=== PATIENT | male | born 1960 | race Caucasian/White ===

== ENCOUNTER 2016-10-23 12:32 | Emergency (ER) | payer MEDICAID ==
--- NOTE | 2016-10-23 13:31 | ED.PDOC ---
History of Present Illness - General Chief Complaint: Back Pain or Injury Stated Complaint: back discomfort Time Seen by Provider: 10/23/16 13:31 Source: patient Exam Limitations: no limitations - History of Present Illness Initial Comments: patient stated that his symptoms started a month ago after closing dumpster he heard a pop on his back then pain on his low back seen er and x ray lumbar area showing old compression fracture on lumbar spine but was told its not from accident.Was prescibed pain meds and muscle relaxer.Denies bowel or bladder dysfunction. Timing/Duration: other - 1 month ago Quality/Severity: moderate, sharpness Back Pain Location: lumbar spine, paraspinous muscles - left side Back Pain Radiation: other - none Method of Injury/Prior Injury: prior injury Improving Factors: nothing Worsening Factors: nothing Associated Symptoms: denies symptoms Allergies/Adverse Reactions: Allergies NO KNOWN ALLERGY Allergy (Verified 05/27/15 16:57) Home Medications: Ambulatory Orders Cyclobenzaprine HCl 10 mg PO BEDTIME PRN 04/02/15 Metoprolol Tartrate 50 mg PO DAILY 04/02/15 Acetamin W/Cod #3 Tab [Tylenol #3 Tab] 1 ea PO Q4-6H PRN #12 tab 05/31/16 Albuterol Sulfate [Proair Hfa] 2 puff INH DAILY 05/31/16 Celecoxib [CeleBREX] 200 mg PO BID 05/31/16 Citalopram Hydrobromide [CeleXA] 20 mg PO DAILY 05/31/16 Metoprolol Tartrate 100 mg PO BEDTIME 05/31/16 Olmesartan Medoxomil [Benicar] 40 mg PO DAILY 05/31/16 amLODIPine BESYLATE [Norvasc] 5 mg PO BEDTIME 05/31/16 Review of Systems - Review of Systems Constitutional: States: no symptoms reported EENTM: States: no symptoms reported Respiratory: States: no symptoms reported Cardiology: States: no symptoms reported Gastrointestinal/Abdominal: States: no symptoms reported Genitourinary: States: no symptoms reported Musculoskeletal: States: back pain - lumbar Skin: States: no symptoms reported Neurological: States: no symptoms reported Endocrine: States: no symptoms reported Hematologic/Lymphatic: States: no symptoms reported Past Medical History (General) - Patient Medical History Hx Stroke: No Hx Congestive Heart Failure: No Hx Hypertension: Yes Hx Diabetes: No Surgical History: cholecystectomy, tonsillectomy - Vaccination History Hx Tetanus, Diphtheria Vaccination: No Hx Influenza Vaccination: No Hx Pneumococcal Vaccination: No - Social History Hx Tobacco Use: No Family Medical History - Family History Mother Family History: No Known Living Status: Cause of : pancreatic CA Hx Cardiac Disease: Yes - Hx DVT's Physical Exam - Physical Exam General Appearance: Alert, No apparent distress Eyes, Ears, Nose, Throat Exam: PERRL/EOMI, normal ENT inspection, TMs normal Neck Exam: non-tender, full range of motion, normal alignment Cardiovascular/Respiratory: regular rate, rhythm, no M/R/G, normal peripheral pulses, no JVD Peripheral Pulses: radial,right: 2+, radial,left: 2+ Gastrointestinal/Abdominal: normal bowel sounds, non tender, soft, no organomegaly Back Exam: normal inspection, no CVA tenderness, no vertebral tenderness, muscle spasm Extremity Exam: no evidence of injury, normal range of motion, non-tender Neurologic: alert, normal mood/affect, oriented x 3 Skin Exam: normal color, warm/dry, cyanosis Departure - Departure Clinical Impression: Muscle spasm of back Low back pain without sciatica Qualifiers: Back pain laterality: left Qualifier Code: (M54.5) Low back pain Time of Disposition: 13:48 Disposition: Discharge to Home or Self Care Condition: Good Departure Forms: ED Discharge - Pt. Copy, Patient Portal Self Enrollment Instructions: DI for Low Back Pain Referrals: Ashwin Desir MD [Primary Care Provider] - 1-2 Weeks Home Medications: Ambulatory Orders Cyclobenzaprine HCl 10 mg PO BEDTIME PRN 04/02/15 Metoprolol Tartrate 50 mg PO DAILY 04/02/15 Acetamin W/Cod #3 Tab [Tylenol #3 Tab] 1 ea PO Q4-6H PRN #12 tab 05/31/16 Albuterol Sulfate [Proair Hfa] 2 puff INH DAILY 05/31/16 Celecoxib [CeleBREX] 200 mg PO BID 05/31/16 Citalopram Hydrobromide [CeleXA] 20 mg PO DAILY 05/31/16 Metoprolol Tartrate 100 mg PO BEDTIME 05/31/16 Olmesartan Medoxomil [Benicar] 40 mg PO DAILY 05/31/16 amLODIPine BESYLATE [Norvasc] 5 mg PO BEDTIME 05/31/16 Additional Instructions: CONTINUE WITH CURRENT MEDICATIONS;FOLLOW UP WITH PRIMARY MD TAVERAS
[2016-10-23] MEDS ORDERED: KETOROLAC TROMETHAMINE INJ 60 MG/2 ML VIAL IM ONE (13:45)
[2016-10-23] MEDS ORDERED: HYDROcodone 10MG/APAP 325MG 1 EA TAB PO ONE (13:46)
[2016-10-23] MEDS ORDERED: ORPHENADRINE CITRATE 30 MG/ML AMP IM ONE (13:46)
[2016-10-23 14:59] VITALS: BP 148/99; TEMP 98; O2SAT 97
== END 2016-10-23 14:15 | disposition home or self-care (01) ==
LOC: ER 12:32
DX: M54.5 Low back pain (principal); M62.830 Muscle spasm of back; I10 Essential (primary) hypertension; Z79.899 Other long term (current) drug therapy
CPT/HCPCS: 73562; J1885; J2360

== ENCOUNTER → 2017-01-28 | Outpatient (CLI) | payer MEDICAID, OTHER | END | disposition home or self-care (01) | LOC: RESP 09:48 | PROVIDERS: ATTEND Nurse Practitioner Family | DX: R00.0 Tachycardia, unspecified (principal); I10 Essential (primary) hypertension; Z13.29 Encounter for screening for other suspected endocrine disorder; Z13.220 Encounter for screening for lipoid disorders ==

== ENCOUNTER → 2017-02-19 | Outpatient (CLI) | payer OTHER ==
--- NOTE | 2017-02-20 08:35 | RAD ---
EXAM DESCRIPTION: Pelvis CLINICAL HISTORY: 56 years Male, PAIN IN RIGHT HIP COMPARISON: None. FINDINGS: The bony pelvis is intact with no abnormality of the bony pelvic ring with a suggestion of borderline or mild osteopenia. No soft tissue masses are noted and no abnormality of the right hip on this AP view of the pelvis is seen. No soft tissue foreign bodies or other changes noted. IMPRESSION: Normal pelvis one view without acute injury or abnormality. Electronically signed by: Ashwin Velazco MD 02/20/2017 8:35 AM CDT
== END | disposition home or self-care (01) ==
LOC: RAD 08:09
PROVIDERS: ATTEND Orthopaedic Surgery
DX: M25.551 Pain in right hip (principal)

== ENCOUNTER → 2017-03-05 | Outpatient (CLI) | payer MEDICAID | LOC: YCFC.O 15:36 | PROVIDERS: ATTEND Nurse Practitioner Family | DX: R19.5 Other fecal abnormalities (principal); I10 Essential (primary) hypertension ==

== ENCOUNTER → 2017-04-23 | Outpatient (CLI) | payer OTHER ==
--- NOTE | 2017-04-24 11:23 | RAD ---
EXAM DESCRIPTION: Chest,2 Views CLINICAL HISTORY: DYSPNEA COMPARISON: CT examination May 2015 of the abdomen and pelvis TECHNIQUE: PA/lateral FINDINGS: Two views of the chest demonstrate clear right lung with an old right posterior lateral lower rib fracture. The left lung demonstrates focal pleural and parenchymal density at the lateral lung base which corresponds to an area of previously noted scarring and thickening evident on prior remote CT. No further workup is required. Lung is otherwise essentially clear with the mid and upper lung field unremarkable. Heart size and vascularity is normal with tortuous aorta and normal mediastinal and hilar contours. IMPRESSION: 1. Pleural and parenchymal scarring and density at the lateral left lung base, unchanged from remote CT of the abdomen that included this region. 2. No acute cardiopulmonary disease. Electronically signed by: Ashwin Velazco MD 04/24/2017 11:22 AM CDT
== END | disposition home or self-care (01) ==
LOC: YCFC.O 14:23
PROVIDERS: ATTEND Nurse Practitioner Family
DX: R06.00 Dyspnea, unspecified (principal); K21.9 Gastro-esophageal reflux disease without esophagitis; R63.5 Abnormal weight gain; R16.0 Hepatomegaly, not elsewhere classified

== ENCOUNTER → 2017-05-04 | Outpatient (CLI) | payer OTHER | LOC: YCFC.O 12:00 | PROVIDERS: ATTEND Anesthesiology Pain Medicine | DX: Z79.891 Long term (current) use of opiate analgesic (principal) ==

== ENCOUNTER → 2017-05-22 | Outpatient (CLI) | payer OTHER ==
--- NOTE | 2017-05-25 08:44 | RAD ---
EXAM DESCRIPTION: Chest,2 Views CLINICAL HISTORY: 56 years, Male, Z01.89,M17.11 shortness breath COMPARISON: April 23 FINDINGS: Adequate inspiration. Some pleural parenchymal density at the left base again noted similar to April study. However slightly more opacity now at the left base. This may be related to technique but cannot exclude a developing superimposed infiltrate. Remaining lungs clear. Cardiac silhouette normal. IMPRESSION: 1. Opacity at the left lung base is probably pleural parenchymal scarring. However this is slightly more prominent than April 23 study. While this may represent technical difference, superimposed pneumonia is not excluded. Recommend follow-up study in about 4-6 weeks to evaluate for stability. Earlier study can be obtained if clinically indicated. 2. Other lung findings stable. Stable heart size. Electronically signed by: Lg Hollingsworth MD 05/25/2017 8:43 AM CDT
== END | disposition home or self-care (01) ==
LOC: YCFC.O 13:24
PROVIDERS: ATTEND Nurse Practitioner Family
DX: Z01.89 Encounter for other specified special examinations (principal); M17.11 Unilateral primary osteoarthritis, right knee

== ENCOUNTER → 2017-05-28 | Outpatient (CLI) | payer OTHER | END | disposition home or self-care (01) | LOC: RESP 12:01 | PROVIDERS: ATTEND Orthopaedic Surgery | DX: Z01.812 Encounter for preprocedural laboratory examination (principal) ==

== ENCOUNTER 2017-06-10 05:53 | Inpatient (IN) | payer OTHER ==
--- NOTE | 2017-06-08 09:04 | HP ---
CHIEF COMPLAINT: Right knee pain. HISTORY OF PRESENT ILLNESS: Mr. Novak is a 56-year-old male with a history of long-term knee pain. He has had injections in the past, anti-inflammatories and activity modification and have failed to give him relief. Because of his ongoing pain and failure of conservative measures, he has requested operative intervention. After discussing the risks, benefits and alternatives to operative intervention, the patient has given informed consent. PAST SURGICAL HISTORY: 1. Tonsillectomy. 2. Cholecystectomy. MEDICATIONS: 1. Citalopram. 2. Losartan. 3. Metoprolol. 4. Cyclobenzaprine. 5. Tramadol. 6. Meloxicam. ALLERGIES: NO KNOWN DRUG ALLERGIES. CODE STATUS: Full code. IMMUNIZATIONS: Up to date. SOCIAL HISTORY: The patient does not drink, smoke or use any illicit drugs. FAMILY HISTORY: None pertinent to today's complaint. REVIEW OF SYSTEMS: Negative except as indicated in the History of Present Illness. PHYSICAL EXAMINATION: VITAL SIGNS: Blood pressure 166/127. Pulse 120. Height 5'9". Weight 191. MENTAL STATUS: The patient is awake, alert, and is able to give a good history and participate in the physical. The patient is oriented to person, place and time. SKIN: Normal tone and turgor. HEENT: Normocephalic, atraumatic. Pupils equal, round and reactive. Mucosal membranes are moist. NECK: Normal range of motion. No thyromegaly, no lymphadenopathy. CHEST: Normal respiratory excursion. CARDIAC: Regular rate and rhythm. No murmurs, rubs or gallops. MUSCULOSKELETAL: Bilateral upper extremities show full active range of motion without pain. There is no deformity or crepitus. Sensation is intact. Strength is 5/5. They are warm and well perfused. The left knee shows no varus /valgus or anterior/posterior laxity. He has full range of motion. The left hip shows full range of motion. Sensation is intact. Strength is 5/5. The right knee is extremely tender diffusely, but most prominently along the medial aspect. Sensation is intact. He has full extension with flexion to about 125 degrees. He is very tender to patellar mobilization. IMAGING: X-rays show severe osteoarthritis. ASSESSMENT: 1. Arthritis. PLAN: The plan at this point is for total knee arthroplasty. We have discussed the risks, benefits, and alternatives to that and the patient has given informed consent. #[id number] [facility]
[~2017-06-10 05:53] MED LIST: LACTATED RINGERS 1,000 ML ONE; SODIUM CHL 0.9% 100ML MINI-BAG 100 ML IVPB ONE; SODIUM CHLORIDE 0.9% 100ML 100 ML IVPB ONE; SODIUM CHLORIDE 0.9% 250ML 250 ML ONE; TRANEXAMIC ACID 1,000 MG/10 ML VIAL ONE; VANCOMYCIN HCL INJ 1,000 MG VIAL IVPB ONE; ceFAZolin SODIUM 1 GM VIAL ONE
[2017-06-10] MEDS ORDERED: MORPHINE SULFATE *EPIDURAL* 0.5 MG/ML VIAL ONE (06:21)
[2017-06-10] MEDS ORDERED: fentaNYL CITRATE INJ 50 MCG/ML AMP ONE (06:24)
[2017-06-10] MEDS ORDERED: ACETAMINOPHEN IV 1000MG 100 ML ONE (06:24)
[2017-06-10] MEDS ORDERED: LACTATED RINGERS 1,000 ML ONE ×2 (06:24→08:56)
[2017-06-10] MEDS ORDERED: ceFAZolin SODIUM 1 GM VIAL ONE (06:25)
[2017-06-10] MEDS ORDERED: LIDOCAINE 1% 50 ML VIAL INJ ONE (06:48)
[2017-06-10] MEDS ORDERED: DEXAMETHASONE INJ 10 MG/ML VIAL ONE (07:00)
[2017-06-10] MEDS ORDERED: PROPOFOL 200 MG/20 ML VIAL IV ONE (07:00)
[2017-06-10] MEDS: VANCOMYCIN HCL INJ 1,000 MG VIAL IVPB ONE ×4 (08:41→09:12)
[2017-06-10] MEDS: ceFAZolin SODIUM 1 GM VIAL ONE ×2 (08:41→09:12)
[2017-06-10] MEDS: BUPIVACAINE 0.5% W/EPI 30 ML VIAL INJ ONE ×2 (08:42→09:38)
[2017-06-10] MEDS ORDERED: BISACODYL SUPPOSITORY 10 MG PR PRN (09:25)
[2017-06-10] MEDS ORDERED: MORPHINE SULFATE INJ 10 MG/ML VIAL IV PRN (09:25)
[2017-06-10] MEDS ORDERED: ACETAMINOPHEN 325 MG TAB PO PRN (09:25)
[2017-06-10] MEDS ORDERED: traMADol HCL 50 MG TAB PO PRN (09:25)
[2017-06-10] MEDS ORDERED: ZOLPIDEM TARTRATE 5 MG TAB PO PRN (09:25)
[2017-06-10] MEDS ORDERED: MAGNESIUM HYDROXIDE 30 ML UD PO PRN (09:25)
[2017-06-10] MEDS ORDERED: TRANEXAMIC ACID INJ 1,000 MG in SODIUM CHLORIDE 0.9% 100ML 100 ML IVPB ONE (09:25)
[2017-06-10] MEDS ORDERED: ALUMINUM & MAGNESIUM HYDROXIDE 30 ML UD PO PRN (09:25)
[2017-06-10] MEDS ORDERED: PROMETHAZINE HCL INJ 12.5 MG in SODIUM CHLORIDE 0.9% 50ML 50 ML IVPB PRN (09:25)
[2017-06-10] MEDS ORDERED: BENZOCAINE-MENTH LOZ (CEPACOL) 1 EA LOZ MT PRN (09:25)
[2017-06-10] MEDS ORDERED: ONDANSETRON INJ 4 MG/2 ML VIAL IV PRN (09:25)
[2017-06-10] MEDS ORDERED: PROMETHAZINE HCL INJ 25 MG in SODIUM CHLORIDE 0.9% 50ML 50 ML IVPB PRN (09:25)
[2017-06-10] MEDS ORDERED: TEMAZEPAM 15 MG CAP PO PRN (09:25)
[2017-06-10] MEDS ORDERED: ACETAMINOPHEN 500 MG TAB PO PRN (09:25)
[2017-06-10] MEDS ORDERED: NALOXONE HCL INJ 0.4 MG/ML VIAL IV PRN (09:25)
[2017-06-10] MEDS ORDERED: SODIUM CHLORIDE 0.9% (FLUSH) 10 ML SYG IV PRN (09:25)
[2017-06-10] MEDS ORDERED: MORPHINE PCA 1 MG/ML 100ML 1 BAG in PREMIX BAG 1 BAG IVPB SCH (09:30)
[2017-06-10] MEDS ORDERED: MORPHINE PCA 1 MG/ML 100 ML BAG IVPB ONE (09:32)
[2017-06-10] MEDS ORDERED: IPRATROPIUM/ALBUTEROL 3 ML VIAL NEB ONE (10:01)
--- NOTE | 2017-06-10 11:20 | OP ---
DATE OF PROCEDURE: 06/10/17 PREOPERATIVE DIAGNOSIS: 1. Osteoarthritis of the knee. POSTOPERATIVE DIAGNOSIS: 1. Osteoarthritis of the knee. PROCEDURE: 1. Total knee arthroplasty. SURGEON: Dc Clancy MD. CONDUCTOR ROAD FREIGHT: Alfred Jaimes CST, SA-C. ANESTHESIA: General. COMPLICATIONS: None. FINDINGS: Severe arthritis of the knee. INDICATION: Mr. Novak has a history of severe pain in the knee which all treatments up to this point have been refractory. Because of the refractory nature of his pain, he has requested operative intervention. After discussing the risks, benefits and alternatives to operative therapy, the patient has given informed consent for total knee arthroplasty. PROCEDURE: The patient was brought to the Operating Room and placed in supine position. General anesthesia was induced and the patient's leg was sterilely prepped and draped. Following prepping and draping, the distal femur was exposed and using an intramedullary guide, the distal femoral cut was made. The appropriate sized cutting block was measured, pinned into place, and the anterior, posterior, and chamfer cuts were made. The ACL was transected and the tibia was subluxed. Both the medial and lateral menisci were removed. An intramedullary guide was used to make the proximal tibial cut. The appropriate sized base plate was placed and a trial polyethylene was placed. The trial femur was placed, the knee was reduced, and the knee was taken through a range of motion. The knee was stable in anterior, posterior, varus and valgus stress. The patella tracked anatomically without evidence of subluxation or dislocation. After trialing, the trial components were removed and the bony surfaces were thoroughly irrigated with saline. Following irrigation, the surfaces were dried and the final components were cemented into place. The excess cement was removed and the remaining cement was allowed to cure. The knee was again taken through a range of motion to confirm stability. The wound was then irrigated with saline and closure was performed using PDS to approximate the arthrotomy followed by closure of the subcutaneous tissues with a combination of running and interrupted Monocryl sutures. Sterile dressing was placed. The patient was awoken from anesthesia and taken to Recovery. POSTOPERATIVE INSTRUCTIONS: The patient will be weight-bearing as tolerated on postoperative day 1. COMPONENTS: [employer] Triathlon knee, size 5 femur, size 5 tibia, 9 mm insert. #[id number] [facility]
[2017-06-10] MEDS: DEX 5% W/NACL 0.45% 1000ML 1,000 ML IVS PRN (12:52)
[2017-06-10] MEDS: IV SET AND CAP CHANGE INJ INJ SCH (13:37)
--- NOTE | 2017-06-10 13:40 | PCM.CORE ---
Physician DVT/VTE - Prophylaxis Currently: Patient already on anticoagulation therapy - Nurse DVT Assessment & Total Each Risk Factor Represents 5 Points: Elective Arthtroplasty Each Risk Factor Represents 1 Point: Age 41-60 DVT Assessment Score: 6 - 5 or more Very High Risk Treatments: Early Ambulation *, Sequential Compression Device Pharmacological: Enoxaparin 30mg SQ BID
--- NOTE | 2017-06-10 14:50 | RAD ---
EXAM DESCRIPTION: Knee,Right 2 or More Views CLINICAL HISTORY: 56 years,Male,TKA COMPARISON: October 23, 2016 FINDINGS: The right knee demonstrates recent total knee arthropathy. With overlying extensive emphysema. No evidence of fractures. IMPRESSION: New right total knee arthroplasty which appears unremarkable. Electronically signed by: Troy Villeda MD 06/10/2017 2:49 PM CDT
[2017-06-10] MEDS ORDERED: CEFAZOLIN SODIUM 2 GRAMS IV 50 ML IVPB ONE ×2 (17:31→20:03)
[2017-06-10] MEDS: CEFAZOLIN SODIUM 2 GRAMS IV 2 GM in PREMIX BAG 1 BAG IVPB SCH ×2 (17:57→23:33)
[2017-06-10] MEDS: CELECOXIB 100 MG CAP PO SCH (17:58)
[2017-06-10] MEDS ORDERED: VANCOMYCIN HCL INJ 1,000 MG VIAL IVPB ONE ×2 (18:16→20:03)
[2017-06-10] MEDS ORDERED: SODIUM CHLORIDE 0.9% 250ML 250 ML ONE ×2 (18:16→20:02)
[2017-06-10] MEDS: VANCOMYCIN HCL INJ 1,000 MG in SODIUM CHLORIDE 0.9% 250ML 250 ML IVPB SCH (18:27)
[2017-06-10] MEDS ORDERED: METOPROLOL TARTRATE 25 MG TAB ONE (20:02)
[2017-06-10] MEDS ORDERED: LOSARTAN POTASSIUM 25 MG TAB ONE (20:02)
[2017-06-10] MEDS ORDERED: ENOXAPARIN SODIUM 30 MG/0.3 ML SYG SUBCU ONE (20:03)
[2017-06-10] MEDS: CITALOPRAM HBR 20 MG TAB PO SCH (20:38)
[2017-06-10] MEDS: MELOXICAM 7.5 MG TAB PO SCH (20:38)
[2017-06-10] MEDS: DOCUSATE CALCIUM 240 MG CAP PO SCH (20:38)
[2017-06-10] MEDS ORDERED: METOPROLOL TARTRATE 75 MG PO SCH (21:00)
[2017-06-10] MEDS ORDERED: NON-FORMULARY MEDICATION 1 EA MIS (Losartan Potassium [Cozaar] 50 MG) PO SCH (21:00)
--- NOTE | 2017-06-10 21:04 | CONS ---
DATE OF CONSULTATION: 06/10/17 SUPERVISING PHYSICIAN: Ashwin Desir M.D. REASON FOR CONSULTATION: Postoperative total knee arthroplasty. HISTORY OF PRESENT ILLNESS: Mr. Novak is a 56 year-old male patient that has a longstanding history of knee pain. He has tried multiple attempts with conservative measures to include injections, antiinflammatories and physical therapy which all have failed to provide any significant relief. Due to the ongoing pain and failure of conservative measures to receive any relief, he requested operative intervention with Dr. Clancy performing a total knee arthroplasty. The patient had a total right knee arthroplasty performed today, recovered and seen in the immediate postoperative phase. The patient was in stable condition on admission to the Medical/Surgical floor. PAST MEDICAL HISTORY: 1. Hypertension. 2. Osteoarthritis involving the knees, especially affecting the right knee. 3. Dysphagia currently followed by Dr. Dickerson in [place]. 4. Gastroesophageal reflux disease. PAST SURGICAL HISTORY: 1. Tonsillectomy. 2. Cholecystectomy. CURRENT MEDICATIONS: 1. Nexium 20 mg daily. 2. Tramadol 50 mg every 6 hours as needed for pain. 3. Metoprolol 75 mg twice daily. 4. Mobic 7.5 mg b.i.d. 5. Cozaar 50 mg twice daily. 6. Cyclobenzaprine 10 mg every 6 hours as needed. 7. Celexa 20 mg at bedtime. ALLERGIES: NO KNOWN DRUG ALLERGIES. FAMILY HISTORY: Father at age 68 secondary to hypertension and a heart attack. Mother at age 61 secondary to pancreatic cancer. SOCIAL HISTORY: The patient is disabled. He previously worked for a [employer] crew. He lives in [place]. He does have a history of smoking in the past but quit approximately 15 years ago at which time he was smoking 1 pack a day. He does not drink alcohol or use illicit drugs. REVIEW OF SYSTEMS: CONSTITUTIONAL: No reported unintentional weight loss or weight gain, fever or chills. HEENT: No headache or syncopal episodes, vision changes or decreased hearing. LUNGS: Does have some shortness of breath sometimes at rest, but no wheezing, coughing or congestion. CARDIOVASCULAR: No reported chest pains, palpitations, syncopal episodes or presyncopal episodes. GASTROINTESTINAL: No nausea, vomiting, diarrhea or constipation. GENITOURINARY: No dysuria, hematuria, discharges or other urinary symptoms. EXTREMITIES: As noted in the History of Present Illness. NEUROLOGIC: Denies any headache, syncopal episodes, presyncopal episodes or other neurological deficits. PHYSICAL EXAMINATION: VITAL SIGNS: Temperature 98.2, pulse 75, blood pressure 133/75, respirations 20 , satting 92% on room air. CHEST: Lungs are clear to auscultation bilaterally. HEART: Regular rate and rhythm. ABDOMEN: Soft, obese, non-tender. Positive bowel sounds. EXTREMITIES: No clubbing, cyanosis or edema. There is a large surgical dressing in place over the right knee. Pulses distally are strong with capillary refill brisk. NEUROLOGIC: He is alert and oriented times three. ASSESSMENT: 1. Immediate postoperative day zero for a total right knee arthroplasty having been performed by Dr. Dc Clancy. 2. Severe osteoarthritis failing to respond to any conservative treatment measures in the outpatient setting requiring surgical intervention for symptom control. 3. History of dysphagia currently followed by Dr. Dickerson. 4. Gastroesophageal reflux disease. 5. Hypertension. PLAN: Will follow the patient as he progresses through his rehabilitation efforts with Physical Therapy and Dr. Clancy. Will encourage deep breathing exercises and incentive spirometry usage to prevent any complications postoperatively. Will resume his home medications as appropriate once updated and verified. Will anticipate length of stay to be 2 to 3 days with discharge planning in process. Until discharge, will continue to monitor and treat appropriately. #[id number] [facility]
[2017-06-10] MEDS: ENOXAPARIN SODIUM 30 MG/0.3 ML SYG SUBCU SCH (22:55)
[2017-06-11] MEDS: VANCOMYCIN HCL INJ 1,000 MG in SODIUM CHLORIDE 0.9% 250ML 250 ML IVPB SCH (06:13)
[2017-06-11] MEDS ORDERED: LOSARTAN POTASSIUM 25 MG TAB ONE (07:15)
[2017-06-11] MEDS ORDERED: METOPROLOL TARTRATE 25 MG TAB ONE ×3 (07:15→12:14)
[2017-06-11] MEDS ORDERED: MAGNESIUM OXIDE 400 MG TAB ONE (07:16)
[2017-06-11] MEDS ORDERED: CEFAZOLIN SODIUM 2 GRAMS IV 50 ML IVPB ONE (07:16)
[2017-06-11] MEDS: CELECOXIB 100 MG CAP PO SCH (07:27)
[2017-06-11] MEDS: CEFAZOLIN SODIUM 2 GRAMS IV 2 GM in PREMIX BAG 1 BAG IVPB SCH (07:28)
[2017-06-11] MEDS ORDERED: HYDROcodone 5MG/APAP 325MG 1 EA TAB PO PRN (08:26)
--- NOTE | 2017-06-11 08:42 | PN ---
DATE: 06/10/17 SUBJECTIVE: Mr. Novak is doing well and has got excellent pain control. OBJECTIVE: Afebrile. Vital signs stable. Dressing is clean, dry and intact. ASSESSMENT: Status post total knee arthroplasty. PLAN: He will begin weight-bearing as tolerated on postoperative day 1. #[id number] [facility]
--- NOTE | 2017-06-11 08:46 | PN ---
DATE: 06/11/17 SUBJECTIVE: Mr. Novak is doing well today and still has adequate pain control. OBJECTIVE: Afebrile. Vital signs stable. Dressing is clean, dry, and intact. ASSESSMENT: Status post total knee arthroplasty. PLAN: He will continue with CPM and begin weight-bearing as tolerated today. [facility][id number] [facility]
[2017-06-11] MEDS ORDERED: ESOMEPRAZOLE MAGNESIUM 20 MG PO SCH (09:00)
[2017-06-11] MEDS: HYDROcodone 5MG/APAP 325MG 1 EA TAB PO PRN ×4 (09:18→21:49)
[2017-06-11] MEDS: MAGNESIUM OXIDE 400 MG TAB PO SCH (09:19)
[2017-06-11] MEDS: LOSARTAN POTASSIUM 25 MG TAB PO SCH ×2 (09:19→20:16)
[2017-06-11] MEDS ORDERED: METOPROLOL TARTRATE 50 MG TAB ONE ×2 (09:25→12:14)
[2017-06-11] MEDS: METOPROLOL TARTRATE 25 MG, METOPROLOL TARTRATE 50 MG PO SCH ×4 (09:26→16:39)
[2017-06-11] MEDS: OMEPRAZOLE CAP 20 MG CAP PO SCH (09:26)
[2017-06-11] MEDS: MELOXICAM 7.5 MG TAB PO SCH ×2 (09:34→16:39)
[2017-06-11] MEDS: ENOXAPARIN SODIUM 30 MG/0.3 ML SYG SUBCU SCH ×2 (11:14→22:32)
--- NOTE | 2017-06-11 15:07 | PN ---
DATE: 06/11/17 SUBJECTIVE: The patient is sitting up in the bed and is having the passive range of motion machine placed on the right leg to assist with range of motion. He is up to 90 degrees at this time. He is alert and awake. He did have a little urine that splashed on part of his lower dressing which has been cleaned and eventually will be changed to a new one. Pain is present, but seems to be a little bit better than he had anticipated. Appetite is good. OBJECTIVE: VITAL SIGNS: Afebrile. Pulse 79. Blood pressure 129/81. Pulse oximetry 99% on room air. LUNGS: Normal. HEART: Normal. He is specifically encouraged to breathe deeply and to actually contract and relax is lower extremity muscles to assist with DVT prophylaxis. LABORATORY: Postoperative hemoglobin 12.6. Urinalysis today shows some hematuria and rare bacteruria. No culture obtained. ASSESSMENT: 1. Postoperative day 1 right total knee arthroplasty performed by Dr. Dc Clancy because of advanced osteoarthritis and failed to respond to outpatient conservative treatment and required surgical intervention to assist with symptom control. 2. Significant osteoarthritis, especially in the right knee, having failed to respond to outpatient conservative treatment and now requiring surgical intervention to assist with symptom control. 3. History of dysphagia, being followed by Dr. Dickerson. 4. History of gastroesophageal reflux disease. 5. History of hypertension. PLAN: Continue rehabilitation under physical therapy and orthopedic supervision. The patient will hopefully be able to quickly respond and get to the point of rehab where he will safely be able to return home within the next one or two days. #[id number] [facility]
[2017-06-11] MEDS ORDERED: KCL 20MEQ/D5 1/2NS 0 ML IVS ONE (15:48)
[2017-06-11] MEDS ORDERED: MORPHINE PCA 1 MG/ML 100 ML BAG IVPB ONE (15:48)
[2017-06-11] MEDS: DEX 5% W/NACL 0.45% 1000ML 1,000 ML IVS PRN (16:01)
[2017-06-11] MEDS: CYCLOBENZAPRINE HCL 10 MG TAB PO PRN (17:47)
[2017-06-11] MEDS: DOCUSATE CALCIUM 240 MG CAP PO SCH (20:16)
[2017-06-11] MEDS: CITALOPRAM HBR 20 MG TAB PO SCH (20:16)
[2017-06-12] MEDS: OMEPRAZOLE CAP 20 MG CAP PO SCH (05:41)
[2017-06-12] MEDS: HYDROcodone 5MG/APAP 325MG 1 EA TAB PO PRN ×5 (05:41→23:12)
[2017-06-12] MEDS ORDERED: METOPROLOL TARTRATE 25 MG TAB ONE ×2 (07:32→16:03)
[2017-06-12] MEDS ORDERED: METOPROLOL TARTRATE 50 MG TAB ONE ×2 (07:33→16:03)
[2017-06-12] MEDS: MELOXICAM 7.5 MG TAB PO SCH ×2 (08:05→16:42)
[2017-06-12] MEDS: METOPROLOL TARTRATE 25 MG, METOPROLOL TARTRATE 50 MG PO SCH ×4 (08:05→16:42)
[2017-06-12] MEDS: CYCLOBENZAPRINE HCL 10 MG TAB PO PRN ×2 (08:18→20:47)
[2017-06-12] MEDS: LOSARTAN POTASSIUM 25 MG TAB PO SCH ×2 (09:10→20:46)
[2017-06-12] MEDS: MAGNESIUM OXIDE 400 MG TAB PO SCH (09:10)
[2017-06-12] MEDS: SODIUM CHLORIDE 0.9% (FLUSH) 10 ML SYG IV SCH ×2 (09:10→20:46)
[2017-06-12] MEDS: ENOXAPARIN SODIUM 30 MG/0.3 ML SYG SUBCU SCH ×2 (11:37→23:04)
--- NOTE | 2017-06-12 18:11 | PN ---
DATE: 06/12/17 SUBJECTIVE: The patient is sitting up in the bed and has a good appetite. Having some discomfort, especially in the right knee today. Slight bleeding was evident earlier today and the dressing was changed from the area of the incision on the right knee. Otherwise pain seems to be a little bit better than it was and further orthopedic and physical therapy intervention continues today. OBJECTIVE: See vital signs. Fairly good range of motion is noted. The patient is close to the point where he will be able to safely return home. ASSESSMENT: 1. Postoperative day #2 right total knee arthroplasty performed by Dr. Dc Clancy because of advanced osteoarthritis which had failed to respond to outpatient conservative management and required surgical intervention to assist with symptom control. 2. Significant osteoarthritis, especially involving the knee. 3. History of dysphagia being followed by Dr. Dickerson. 4. History of gastroesophageal reflux disease. 5. History of hypertension. PLAN: Anticipate reevaluation in the morning. If stable, home situation appears to be ready to accept him home for continued outpatient rehabilitation. He is given a sample of Xarelto 15 mg #9 to take home to assist with his ongoing anticoagulation. This will be given to him after discharge is written as of tomorrow. Close followup suggested. #[id number] [facility]
[2017-06-12] MEDS: DOCUSATE CALCIUM 240 MG CAP PO SCH (20:46)
[2017-06-12] MEDS: CITALOPRAM HBR 20 MG TAB PO SCH (20:46)
[2017-06-12] MEDS: MORPHINE SULFATE INJ 10 MG/ML VIAL IM PRN (21:42)
[2017-06-13] MEDS: OMEPRAZOLE CAP 20 MG CAP PO SCH (05:52)
[2017-06-13] MEDS: HYDROcodone 5MG/APAP 325MG 1 EA TAB PO PRN ×2 (05:52→10:57)
[2017-06-13 06:14] VITALS: TEMP 97.4; O2SAT 95
[2017-06-13] MEDS ORDERED: METOPROLOL TARTRATE 50 MG TAB ONE (07:35)
[2017-06-13] MEDS ORDERED: METOPROLOL TARTRATE 25 MG TAB ONE (07:35)
[2017-06-13] MEDS: MELOXICAM 7.5 MG TAB PO SCH (07:58)
[2017-06-13] MEDS: METOPROLOL TARTRATE 25 MG, METOPROLOL TARTRATE 50 MG PO SCH ×2 (07:58)
[2017-06-13] MEDS: CYCLOBENZAPRINE HCL 10 MG TAB PO PRN (08:37)
[2017-06-13] MEDS: SODIUM CHLORIDE 0.9% (FLUSH) 10 ML SYG IV SCH (08:38)
[2017-06-13] MEDS: MAGNESIUM OXIDE 400 MG TAB PO SCH (08:38)
[2017-06-13] MEDS: MORPHINE SULFATE INJ 10 MG/ML VIAL IM PRN (08:38)
[2017-06-13] MEDS: LOSARTAN POTASSIUM 25 MG TAB PO SCH (08:38)
[2017-06-13 10:35] VITALS: BP 153/85
[2017-06-13] MEDS: IV SET AND CAP CHANGE INJ INJ SCH (10:37)
[2017-06-13] MEDS: ENOXAPARIN SODIUM 30 MG/0.3 ML SYG SUBCU SCH (10:44)
[2017-06-13] MEDS ORDERED: BISACODYL SUPPOSITORY 10 MG PR ONE (21:00)
[2017-06-13] MEDS ORDERED: MAGNESIUM HYDROXIDE 30 ML UD PO ONE (21:00)
--- NOTE | 2017-06-17 13:40 | DS ---
SUPERVISING PHYSICIAN: Ashwin Desir MD DISCHARGE DIAGNOSIS: 1. Postoperative day #3 right total knee arthroplasty performed by Dr. Dc Clancy because of advanced osteoarthritis which had failed to respond to outpatient conservative management and required surgical intervention to assist with symptom control. 2. Significant osteoarthritis, especially involving the knee. 3. History of dysphagia, being followed by Dr. Dickerson. 4. History of gastroesophageal reflux disease. 5. History of hypertension. HISTORY OF PRESENT ILLNESS: Mr. Novak is a 56-year-old male patient that has a longstanding history of knee pain. He had tried multiple attempts with conservative measures to include injections, antiinflammatories and physical therapy, which all had failed to provide any significant relief. Due to the ongoing pain and failure of conservative measures to receive any relief, he requested operative intervention with Dr. Clancy who performed a total knee arthroplasty. The patient had a total right knee arthroplasty performed on date of admission. He was seen in Recovery in stable condition and followed until discharge. LABORATORY: Postoperative hemoglobin and hematocrit of 12.6 and 37.4. HOSPITAL COURSE: Mr. Novak was admitted on 06/10/17 for elective right total knee arthroplasty as noted above. He was seen in the immediate postoperative state in good condition. He was alert and had good pain control. He was able to participate with physical therapy and on date of discharge, he was felt to have progressed well enough to complete therapy and rehabilitation in the outpatient setting. PLAN: Mr. Novak was discharged on 06/13/17 with instructions to have close clinical followup with Dr. Clancy as scheduled on 06/25/17 at 10 AM. He was to take his new prescriptions as directed and resume all home medications as instructed. He was to return to the hospital if any concerning symptoms. DISCHARGE MEDICATIONS: 1. Flexeril 10 mg 1 tablet q.8h. as needed, #15. 2. Sucralfate 240 mg tablet at bedtime. 3. [place] 5-325 mg tablets 2 q.4h. as needed. 4. Magnesium hydroxide 30 mL at bedtime as needed. 5. Xarelto 15 mg daily, #8. ACTIVITY AT DISCHARGE: Per physical therapy. Walk with a walker. DIET AT DISCHARGE: As tolerated. CONDITION AT DISCHARGE: Stable and improved. [facility][id number] [facility]
== END 2017-06-13 12:48 | disposition home or self-care (01) | DRG 470 ==
LOC: AMB 05:53 → MS 11:05
PROVIDERS: ADMIT Orthopaedic Surgery; ATTEND Nurse Practitioner Family
PROC: 0SRC0J9 Replacement of Right Knee Joint with Synthetic Substitute, Cemented, Open Approach (ICD-10-PCS; principal; 2017-06-10 06:54)
DX: M17.11 Unilateral primary osteoarthritis, right knee (principal); K21.9 Gastro-esophageal reflux disease without esophagitis; K44.9 Diaphragmatic hernia without obstruction or gangrene; I10 Essential (primary) hypertension; R13.10 Dysphagia, unspecified; E66.9 Obesity, unspecified; F17.220 Nicotine dependence, chewing tobacco, uncomplicated; Z79.1 Long term (current) use of non-steroidal anti-inflammatories (NSAID); Z79.899 Other long term (current) drug therapy; Z68.28 Body mass index [BMI] 28.0-28.9, adult

== ENCOUNTER → 2017-07-21 | Outpatient (CLI) | payer OTHER | END | disposition home or self-care (01) | LOC: YCFC.O 13:17 | PROVIDERS: ATTEND Anesthesiology Pain Medicine | DX: Z79.891 Long term (current) use of opiate analgesic (principal) ==

== ENCOUNTER → 2018-01-28 | Outpatient (CLI) | payer OTHER | LOC: YCFC.O 08:06 | PROVIDERS: ATTEND Nurse Practitioner Family | DX: R03.0 Elevated blood-pressure reading, without diagnosis of hypertension (principal); Z13.220 Encounter for screening for lipoid disorders ==

== ENCOUNTER 2018-08-11 10:13 | Emergency (ER) | payer OTHER ==
[2018-08-11] MEDS ORDERED: SODIUM CHLORIDE 0.9% 1000ML 1,000 ML IVS ONE ×2 (10:44→11:24)
--- NOTE | 2018-08-11 11:03 | ED.PDOC ---
History of Present Illness - General Chief Complaint: Syncope/Near Syncope Stated Complaint: Syncopal episode Time Seen by Provider: 08/11/18 10:42 Source: RN notes reviewed, EMS notes reviewed Additional Information: 58 YEAR OLD HAD A SYNCOPAL EPISODE AND FELL AT [employer] AND INJURED HIS HEAD DENIES HEADACHE NO NUMBNESS OR WEAKNESS OF THE EXTREMITY NOTED HE HAS BEEN NOT FEELING WELL BEFORE THIS EVENT FOR A WEEK HAD VOMITED 3 TIMES SINCE LAST NIGHT NO ASSOCIATED ABDOMINAL PAIN NO DIARRHEA NO FEVER BUT HAS BEEN FEELING VERY COLD HE HAS HISTORY OF HYPERTENSION AND TAKES 2 ANTIHYPERTENSIVE PILLS HE HAS BEEN DISABLED FROM CHRONIC BACK PAIN 'HIS PCP IS IN [facility] - History of Present Illness Severity: mild Improving Factors: nothing Allergies/Adverse Reactions: Allergies NO KNOWN ALLERGY Allergy (Verified 05/27/15 16:57) Home Medications: Ambulatory Orders Losartan Potassium [Cozaar] 50 mg PO BID 06/08/17 Meloxicam [Mobic] 7.5 mg PO BID 06/08/17 Metoprolol Tartrate 75 mg PO BID 06/08/17 Tramadol HCl [Ultram] 50 mg PO Q6HR PRN 06/08/17 Clonidine HCl 0.2 mg PO DAILY PRN 08/11/18 Promethazine Tab [Phenergan Tablet] 25 mg PO .Q4H #20 tab 08/11/18 Ranitidine HCl 150 mg PO BID 08/11/18 tiZANidine [Zanaflex] 4 mg PO TID 08/11/18 Review of Systems - Review of Systems Constitutional: States: chills EENTM: States: no symptoms reported Respiratory: States: no symptoms reported Cardiology: States: no symptoms reported Gastrointestinal/Abdominal: States: vomiting Genitourinary: States: no symptoms reported Skin: States: no symptoms reported Neurological: States: no symptoms reported Endocrine: States: no symptoms reported Hematologic/Lymphatic: States: no symptoms reported Past Medical History (General) - Patient Medical History Hx Seizures: No Hx Stroke: No Hx Asthma: No Hx of COPD: Yes Hx Congestive Heart Failure: No Hx Pacemaker: No Hx Hypertension: Yes Hx Diabetes: No Hx Gastroesophageal Reflux: Yes Hx MRSA: No Surgical History: cholecystectomy, tonsillectomy - Vaccination History Hx Tetanus, Diphtheria Vaccination: No Hx Influenza Vaccination: No - 2017 Hx Pneumococcal Vaccination: Yes - Social History Hx Tobacco Use: No Hx Alcohol Use: No Hx Substance Use: No Hx Physical Abuse: No Hx Emotional Abuse: No Family Medical History - Family History Mother Family History: No Known Living Status: Cause of : pancreatic CA Hx Cardiac Disease: Yes - Hx DVT's Physical Exam - Physical Exam General Appearance: Alert, Comfortable, Frail, No apparent distress Eye Exam: bilateral normal Ears, Nose, Throat: hearing grossly normal, normal ENT inspection, normal pharynx Neck: non-tender, full range of motion, supple Respiratory: no respiratory distress, no accessory muscle use, respiratory distress Cardiovascular/Chest: normal peripheral pulses, regular rate, rhythm, no edema, no gallop Peripheral Pulses: radial,right: 2+ Gastrointestinal/Abdominal: normal bowel sounds, non tender, soft, no organomegaly Back Exam: normal inspection, no CVA tenderness, no vertebral tenderness Neurologic: wellness specialist II-XII nml as tested, no motor/sensory deficits, alert, normal mood/affect Skin Exam: normal color, warm/dry Progress - Results/Orders Results/Orders: Laboratory Tests 08/11/18 08/11/18 08/11/18 10:25 10:25 13:18 WBC 15.4 H RBC 5.29 Hgb 16.8 Hct 49.7 MCV 94.0 MCH 31.7 H MCHC 33.8 RDW 14.8 H Plt Count 415 H MPV 9.0 Absolute Neuts (auto) 11.00 H Absolute Lymphs (auto) 2.70 Absolute Monos (auto) 1.40 H Absolute Eos (auto) 0.10 Absolute Basos (auto) 0.10 Neutrophils % 71.6 Lymphocytes % 17.5 L Monocytes % 9.2 H Eosinophils % 0.7 L Basophils % 1.0 Sodium 138 Potassium 2.7 L Chloride 101 Carbon Dioxide 21 Anion Gap 18.7 H BUN 21 H Creatinine 1.75 H BUN/Creatinine Ratio 12.0 Random Glucose 158 H Serum Osmolality 282.0 Calcium 9.7 Total Bilirubin 1.2 H AST 22 ALT 11 Alkaline Phosphatase 79 Serum Total Protein 8.2 Albumin 4.6 Globulin 3.6 H Albumin/Globulin Ratio 1.3 Urine Color Dk yellow Urine Appearance Sl cloudy Urine pH 5.5 Ur Specific [place] 1.015 Urine Protein 30 Urine Glucose (UA) Negative Urine Ketones 15 H Urine Blood Negative Urine Nitrite Negative Urine Bilirubin Negative Urine Urobilinogen 1.0 Ur Leukocyte Esterase Negative Urine RBC 0 Urine WBC 0 Ur Epithelial Cells 3-5 Urine Bacteria 0 10/31/18 14:14 WBC RBC Hgb Hct MCV MCH MCHC RDW Plt Count MPV Absolute Neuts (auto) Absolute Lymphs (auto) Absolute Monos (auto) Absolute Eos (auto) Absolute Basos (auto) Neutrophils % Lymphocytes % Monocytes % Eosinophils % Basophils % Sodium Potassium 3.2 L Chloride Carbon Dioxide Anion Gap BUN Creatinine BUN/Creatinine Ratio Random Glucose Serum Osmolality Calcium Total Bilirubin AST ALT Alkaline Phosphatase Serum Total Protein Albumin Globulin Albumin/Globulin Ratio Urine Color Urine Appearance Urine pH Ur Specific [place] Urine Protein Urine Glucose (UA) Urine Ketones Urine Blood Urine Nitrite Urine Bilirubin Urine Urobilinogen Ur Leukocyte Esterase Urine RBC Urine WBC Ur Epithelial Cells Urine Bacteria - EKG/XRAY/CT EKG: Sinus, no ST T wave changes Comments: NSR NORMAL AXIS NO ACUTE INJURY LVH NOTED NO OLD EKG TO COMPARE CT Ordered: No CT Interpretation Call Back: No Departure - Departure Clinical Impression: Syncope and collapse, Hypokalemia Disposition: Discharge to Home or Self Care Departure Forms: ED Discharge - Pt. Copy, Patient Portal Self Enrollment Diet: resume usual diet Activity: increase activity as tolerated Referrals: Olya Barrera, JAKY [Primary Care Provider] - 1-2 Weeks Prescriptions: Promethazine Tab [Phenergan Tablet] 25 mg PO .Q4H #20 tab Home Medications: Ambulatory Orders Losartan Potassium [Cozaar] 50 mg PO BID 06/08/17 Meloxicam [Mobic] 7.5 mg PO BID 06/08/17 Metoprolol Tartrate 75 mg PO BID 06/08/17 Tramadol HCl [Ultram] 50 mg PO Q6HR PRN 06/08/17 Clonidine HCl 0.2 mg PO DAILY PRN 08/11/18 Promethazine Tab [Phenergan Tablet] 25 mg PO .Q4H #20 tab 08/11/18 Ranitidine HCl 150 mg PO BID 08/11/18 tiZANidine [Zanaflex] 4 mg PO TID 08/11/18 Comments: FOLLOW UP WITH PCP
[2018-08-11] MEDS ORDERED: ONDANSETRON INJ 4 MG/2 ML VIAL ONE (11:07)
[2018-08-11] MEDS ORDERED: ONDANSETRON INJ 4 MG/2 ML VIAL IV ONE (11:12)
--- NOTE | 2018-08-11 11:18 | CT ---
EXAM DESCRIPTION: Head: Computed Tomography. CLINICAL HISTORY: head trauma. Ground-level fall. Altered mental status. Neck pain. COMPARISON: CT scan of the neck/cervical spine without IV contrast on this visit. TECHNIQUE: Non-helical axial scans through the skull and brain, at 2.5 x 20 mm intervals, non-contrast. Coronal and sagittal 3.0 mm reconstructions. Total Exam DLP: 967.47 mGy-cm. This exam was performed according to our departmental dose-optimization program which includes automated exposure control, adjustment of the mA and/or kV according to patient size and/or use of iterative reconstruction technique; to reduce radiation dose to as low as reasonably achievable (ALARA). FINDINGS: No intra-axial hemorrhage, no mass-effect, and no midline shift. Normal serrano-white matter differentiation. Possible small calcification in the left basal ganglia. Vascular calcifications not present; physiologic calcifications in the pineal gland and choroid plexus. No effacement or displacement of the ventricles, CSF spaces, or subdural spaces. The extra-axial spaces are prominent for patient's age, but ventricle size is physiologic. No extra axial fluid collection or hemorrhage. Included paranasal sinuses and mastoid air cells are well - aerated. Subha bullosa in the right middle turbinate. Nasal septum deviated to the right.. Soft tissue swelling in the scalp abutting the inferior left occipital bone most likely a hematoma secondary to trauma. The inner table and outer table of the adjacent calvarium is intact, as is the remaining calvarium. IMPRESSION: 1. No hemorrhage, no mass effect, no midline shift. Cortical atrophy is prominent for age. Small calcification in the left basal ganglia could be a sign of early cerebral microvascular disease. 2. CT scans are insensitive for detecting small CVAs in the first 24 hours after onset. Evaluation of the brain stem is also limited. If symptoms persist, consider NON-EMERGENT MRI scan of the brain with diffusion imaging. Electronically signed by: Alfred Mendoza MD 08/11/2018 11:17 AM CDT
[2018-08-11] MEDS ORDERED: POTASSIUM BICARBONATE 25 MEQ TAB PO ONE ×2 (11:25→11:26)
--- NOTE | 2018-08-11 11:38 | CT ---
EXAM DESCRIPTION: Cervical Spine: Computed Tomography. CLINICAL HISTORY: Ground-level fall. Altered mental status. Neck pain. COMPARISON: Noncontrast CT scan of the head on the same visit. TECHNIQUE: Spiral, axial 2.5 x 2.5 mm scans through the cervical spine without contrast. Coronal and sagittal 2.0 mm Reconstructions Total Exam DLP: 441.06 mGy-cm. This exam was performed according to our departmental dose-optimization program which includes automated exposure control, adjustment of the mA and/or kV according to patient size and/or use of iterative reconstruction technique; to reduce radiation dose to as low as reasonably achievable (ALARA). FINDINGS: Minimal arthrosis in the atlantoaxial joint but no fracture or displacement. Occipital cranial articulation is unremarkable. Minimal rotation in the C1-C2 joints bilaterally. No fracture. No compression fractures at any level. No spondylolisthesis. Minimal bilateral facet arthrosis C6-7 and C7-T1. No facet fracture. No perched or locked facets. No canal or foraminal stenosis. Mild neural foraminal narrowing at some levels. No significant disc herniation or cord compression Nonspecific densities in the posterior right lung apex. No significantly enlarged soft tissue masses in the neck or enlarged lymph nodes, but evaluation is limited due to lack of IV contrast. IMPRESSION: 1. No CT evidence for acute cervical spine injury or displacement. Minimal age-related changes in the cervical spine alignment and joints. No fracture of the vertebral body column or the posterior elements. No canal or neural foraminal stenosis. Electronically signed by: Alfred Mendoza MD 08/11/2018 11:37 AM CDT
--- NOTE | 2018-08-11 12:34 | RAD ---
Study: Single Frontal View of the Chest. Indication:cough, elevated white count Comparison: May 22, 2017 Impression: Heart size normal. Mild left basilar atelectasis, slightly improved compared to the prior. Tiny left pleural effusion versus scarring suspected. No pneumothorax. Electronically signed by: Hesham Hercules MD 08/11/2018 12:33 PM CDT
[2018-08-11 16:36] VITALS: TEMP 97
[2018-08-11 16:37] VITALS: BP 149/92; O2SAT 97
== END 2018-08-11 15:28 | disposition home or self-care (01) ==
LOC: ER 10:13
DX: R55 Syncope and collapse (principal); R11.10 Vomiting, unspecified; E87.6 Hypokalemia; J44.9 Chronic obstructive pulmonary disease, unspecified; I10 Essential (primary) hypertension; K21.9 Gastro-esophageal reflux disease without esophagitis; Z79.899 Other long term (current) drug therapy

== ENCOUNTER → 2018-08-18 | Outpatient (CLI) | payer OTHER | LOC: YCFC.O 08:26 | PROVIDERS: ATTEND Nurse Practitioner Family | DX: E87.6 Hypokalemia (principal); R89.9 Unspecified abnormal finding in specimens from other organs, systems and tissues ==

== ENCOUNTER → 2018-08-31 | Outpatient (CLI) | payer OTHER ==
--- NOTE | 2018-08-31 12:44 | CT ---
EXAM DESCRIPTION: Abdomen/Pelvis w/wo Contrast: Computed Tomography. CLINICAL HISTORY: LOWER QUADRANT PAIN COMPARISON: CT scan of the abdomen with IV contrast 05/31/2018. CT scan abdomen and pelvis with IV contrast 05/27/2015. TECHNIQUE: Spiral-axial scans at 5 x 5 mm intervals through the abdomen and pelvis before and after nonionic IV contrast. No oral contrast. Coronal and sagittal 2.0 mm reconstructions. 5 mm Delayed helical-axial scans, liver through the pubic symphysis. No adverse reactions. Total Exam DLP 2716.70 mGy - cm. This exam was performed according to our departmental CT dose-optimization program which includes automated exposure control, adjustment of the mA and/or kV according to patient size and/or use of iterative reconstruction technique; to reduce radiation dose to as low as reasonably achievable (ALARA). FINDINGS: Lung bases and pleura: Minimal atelectasis bibasilar. No effusion. Stable. Liver, Stomach, Spleen, Adrenal Glands: Small calcification central right hepatic lobe. Minimal dilation of intrahepatic ducts. Stable. Stomach unremarkable. Negative findings in other solid organs.. Pancreas, Gallbladder, Ducts: Previous cholecystectomy with surgical clips. No fluid in the gallbladder fossa. Minimal dilation of the common bile duct is unchanged. Pancreas is negative.. Kidneys and Ureters: Unremarkable. Mesentery: No stranding or fascial thickening. No free air or free fluid. Aorta: Mild atherosclerotic calcification and intimal wall thickening. No stenosis or aneurysm. Small Bowel: Normal caliber. Terminal Ileum/Cecum: Negative. Elongated appendix slightly dilated on the distal tip but normal density of surrounding fat. Stable appearance since the prior study. Colon: Markedly redundant sigmoid colon with no complications. Constipation proximal colon. Stable since the prior study. Pelvic Organs: 2 calcifications in the prostate gland abutting the base of the urinary bladder and the seminal vesicles. Questionable stranding of the pelvic fat around the seminal vesicles, but vesicles not enlarged. Minimal thickening of the urinary bladder wall may be due to lack of distention. Distal ureters are negative. No free fluid in the anterior peritoneal reflection and no pelvic mass. Spine and Bony Pelvis: Grade 1 retrolisthesis L4-5. Subchondral erosions in the right acetabular facet. Abdominal Wall/Back Soft Tissues: Small fatty inguinal hernias not containing bowel. IMPRESSION: 1. Previous cholecystectomy with no ascites and no fluid in the gallbladder fossa. Common bile duct minimally dilated along with intrahepatic biliary ducts, stable since the prior study. Liver otherwise unremarkable. Negative pancreas. 2. There are calcifications in the prostate gland is not enlarged. Minimal fatty stranding around the seminal vesicles which are not enlarged. No free fluid. Similar appearance of the pelvis on the prior CT scan in May 2015. 3. Grade 1 retrolisthesis at L4-5 and subchondral erosions in the right acetabular facet are stable since May 2015. Electronically signed by: Alfred Mendoza MD 08/31/2018 12:43 PM [facility]
== END ==
LOC: CT 08:30
PROVIDERS: ATTEND Nurse Practitioner Family
DX: R10.31 Right lower quadrant pain (principal); Z90.49 Acquired absence of other specified parts of digestive tract

== ENCOUNTER → 2018-10-29 | Outpatient (CLI) | payer OTHER ==
--- NOTE | 2018-10-29 08:54 | RAD ---
Single frontal view pelvis. Indication: PAIN IN RIGHT HIP Comparison: February 19, 2017 Impression: No acute fracture or malalignment. Mild bilateral hip osteoarthritis with joint space narrowing and minimal osteophyte formation. Mild pubic symphysis osteoarthritis. Electronically signed by: Hesham Hercules MD 10/29/2018 8:53 AM [facility]
--- NOTE | 2018-10-29 08:55 | RAD ---
4 views of the right knee. Indication: PAIN IN RIGHT KNEE Impression: Postsurgical changes of right total knee arthroplasty noted with associated moderate to large knee effusion. Scattered millimetric ossifications throughout the joint space. No acute fracture or malalignment. Electronically signed by: Hesham Hercules MD 10/29/2018 8:54 AM [facility]
== END ==
LOC: RAD 07:36
PROVIDERS: ATTEND Orthopaedic Surgery
DX: M25.561 Pain in right knee (principal); M25.461 Effusion, right knee; M25.551 Pain in right hip; M16.0 Bilateral primary osteoarthritis of hip; Z47.1 Aftercare following joint replacement surgery; Z96.651 Presence of right artificial knee joint

== ENCOUNTER → 2018-12-08 | Outpatient (CLI) | payer OTHER ==
--- NOTE | 2018-12-08 16:57 | RAD ---
EXAM DESCRIPTION: Chest,2 Views CLINICAL HISTORY: PRE OP COMPARISON: Previous chest x-ray August 11, 2018, previous CT abdomen August 31, 2018 TECHNIQUE: PA/lateral FINDINGS: Density in the peripheral left lung base is consistent with scarring, unchanged since earlier study 2016 and May. Heart size is normal. Lungs appear clear. No pneumothorax or pleural effusion.. Heart size is normal with normal pulmonary vascularity. No pleural effusion or pneumothorax. Lungs are clear with no consolidating infiltrate. Lateral view shows intact sternum and T-spine. IMPRESSION: No acute process is identified in the chest. Electronically signed by: Rex Sheridan MD 12/08/2018 4:54 PM [employer]
== END ==
LOC: LAB.O 13:53
PROVIDERS: ATTEND Nurse Practitioner Family
DX: Z01.818 Encounter for other preprocedural examination (principal)

== ENCOUNTER → 2019-01-24 | Outpatient (CLI) | payer OTHER | LOC: LAB.O 08:46 | PROVIDERS: ATTEND Orthopaedic Surgery | DX: Z01.818 Encounter for other preprocedural examination (principal) ==

== ENCOUNTER 2019-02-09 05:49 | Inpatient (IN) | payer OTHER ==
--- NOTE | 2019-02-07 13:44 | HP ---
CHIEF COMPLAINT: Right knee pain. HISTORY OF PRESENT ILLNESS: Mr. Novak is a 58-year-old male with a history of pain in the right knee after having total knee arthroplasty done in 2017. He has had some generalized aching, but denies any radiation of pain or neurologic symptoms. He has had no invasive procedures and denies any constitutional symptoms. We have done an evaluation for infectious indices and it was negative. He does have some laxity in the knee and we have talked about that. To that end, we talked about doing revision with change of the polyethylene, debridement, manually stressing the components and doing a patellar resurfacing. After discussing the risks, benefits and alternatives to that, he has given informed consent. PAST SURGICAL HISTORY: 1. Knee replacement. 2. Tonsillectomy. 3. Cholecystectomy. MEDICATIONS: 1. Clonidine. 2. Diclofenac. 3. Fluticasone. 4. Losartan. 5. Meloxicam. 6. Metoprolol. 7. Potassium. 8. Ranitidine. 9. Tizanidine. 10. Tramadol. ALLERGIES: NO KNOWN DRUG ALLERGIES. REVIEW OF SYSTEMS: Negative except as indicated in the History of Present Illness. PHYSICAL EXAMINATION: VITAL SIGNS: Blood pressure 185/113. Pulse 64. Height 5'9". Weight 178 pounds. MENTAL STATUS: The patient is awake, alert, and is able to give a good history and participate in the physical. The patient is oriented to person, place and time. SKIN: Normal tone and turgor. HEENT: Normocephalic, atraumatic. Pupils equal, round and reactive. Mucosal membranes are moist. NECK: Normal range of motion. No thyromegaly, no lymphadenopathy. CHEST: Normal respiratory excursion. CARDIAC: Regular rate and rhythm. No murmurs, rubs or gallops. MUSCULOSKELETAL: The bilateral upper extremities show full active range of motion without pain. He has intact sensation. Strength is 5/5. They are warm and well perfused. He has no malalignment. He has crepitus with range of motion of the elbows, wrists and digits. The left lower extremity shows full range of motion in the hip and knee. He has intact sensation. There is no deformity and there is no malalignment. The right lower extremity shows full range of motion of the hip. He has full extension of the knee and flexion to about 130 degrees. There is no varus/valgus or anterior/posterior laxity. He does have some increased laxity in anterior drawer testing. There is no swelling and no effusion. The pain is diffuse, but seems to be most prominent along the medial aspect. IMAGING: X-rays show a well aligned prosthesis, but no acute bony abnormalities. ASSESSMENT: 1. Knee pain status post total knee arthroplasty. PLAN: The plan at this point is for polyethylene exchange with possible patellar resurfacing. We may need to do a full revision. He and I have talked about that. We have discussed the risks, benefits, and alternatives to that and the patient has given informed consent. [facility][id number] [facility]
[2019-02-09] MEDS ORDERED: fentaNYL CITRATE INJ 50 MCG/ML AMP ONE (06:20)
[2019-02-09] MEDS ORDERED: MORPHINE SULFATE *EPIDURAL* 0.5 MG/ML VIAL ONE (06:20)
[2019-02-09] MEDS ORDERED: ACETAMINOPHEN IV 1000MG 100 ML ONE (06:20)
[2019-02-09] MEDS ORDERED: MIDAZOLAM INJ 2 MG/2 ML VIAL ONE ×2 (06:20→06:45)
[2019-02-09] MEDS ORDERED: ceFAZolin SODIUM 1 GM VIAL ONE ×2 (06:40→08:19)
[2019-02-09] MEDS: ceFAZolin SODIUM 1 GM VIAL ONE ×2 (07:51→08:29)
[2019-02-09] MEDS: BUPIVACAINE LIPOSOME 13.3 MG/ML VIAL INJ ONE ×2 (07:52→08:29)
[2019-02-09] MEDS: BUPIVACAINE 0.5% 30 ML VIAL INJ ONE ×2 (07:52→08:29)
[2019-02-09] MEDS: VANCOMYCIN HCL INJ 1,000 MG VIAL IVPB ONE ×2 (08:19→08:29)
[2019-02-09] MEDS ORDERED: BUPIVACAINE 0.5% 30 ML VIAL INJ ONE (08:26)
[2019-02-09] MEDS ORDERED: BISACODYL SUPPOSITORY 10 MG PR PRN (08:49)
[2019-02-09] MEDS ORDERED: MORPHINE SULFATE INJ 10 MG/ML VIAL IM PRN (08:49)
[2019-02-09] MEDS ORDERED: traMADol HCL 50 MG TAB PO PRN (08:49)
[2019-02-09] MEDS ORDERED: MAGNESIUM HYDROXIDE 30 ML UD PO PRN (08:49)
[2019-02-09] MEDS ORDERED: PROMETHAZINE HCL INJ 25 MG in SODIUM CHLORIDE 0.9% 50ML 50 ML IVPB PRN (08:49)
[2019-02-09] MEDS ORDERED: ACETAMINOPHEN 500 MG TAB PO PRN (08:49)
[2019-02-09] MEDS ORDERED: BENZOCAINE-MENTH LOZ (CEPACOL) 1 EA LOZ MT PRN (08:49)
[2019-02-09] MEDS ORDERED: ALUMINUM & MAGNESIUM HYDROXIDE 30 ML UD PO PRN (08:49)
[2019-02-09] MEDS ORDERED: PROMETHAZINE HCL INJ 12.5 MG in SODIUM CHLORIDE 0.9% 50ML 50 ML IVPB PRN (08:49)
[2019-02-09] MEDS ORDERED: ACETAMINOPHEN 325 MG TAB PO PRN (08:49)
[2019-02-09] MEDS ORDERED: TEMAZEPAM 15 MG CAP PO PRN (08:49)
[2019-02-09] MEDS ORDERED: DEX 5% W/NACL 0.45% 1000ML 1,000 ML IVS PRN (08:49)
[2019-02-09] MEDS ORDERED: CYCLOBENZAPRINE HCL 10 MG TAB PO PRN (08:49)
[2019-02-09] MEDS ORDERED: SODIUM CHLORIDE 0.9% (FLUSH) 10 ML SYG IV PRN (08:49)
[2019-02-09] MEDS ORDERED: MORPHINE SULFATE INJ 10 MG/ML VIAL IV PRN (08:49)
[2019-02-09] MEDS ORDERED: TRANEXAMIC ACID INJ 1,000 MG in SODIUM CHLORIDE 0.9% 100ML 100 ML IVPB ONE (08:49)
[2019-02-09] MEDS ORDERED: NALOXONE HCL INJ 0.4 MG/ML VIAL IV PRN (08:49)
[2019-02-09] MEDS ORDERED: ZOLPIDEM TARTRATE 5 MG TAB PO PRN (08:49)
[2019-02-09] MEDS ORDERED: HYDROcodone 5MG/APAP 325MG 1 EA TAB PO PRN (08:49)
[2019-02-09] MEDS ORDERED: IV SET AND CAP CHANGE INJ INJ SCH (09:00)
[2019-02-09] MEDS ORDERED: MORPHINE PCA 1 MG/ML 100 ML BAG IVPB SCH (09:00)
[2019-02-09] MEDS ORDERED: MORPHINE SULFATE INJ 10 MG/ML VIAL IV ONE ×2 (09:30→09:45)
[2019-02-09] MEDS ORDERED: MEPERIDINE HCL 50 MG/ML VIAL IV ONE (09:37)
[2019-02-09] MEDS ORDERED: LACTATED RINGERS 1,000 ML ONE (09:47)
[2019-02-09] MEDS ORDERED: LIDOCAINE 1% 10 ML VIAL INJ ONE (10:00)
[2019-02-09] MEDS ORDERED: METOCLOPRAMIDE HCL INJ 10 MG/2 ML VIAL IV ONE (10:00)
[2019-02-09] MEDS ORDERED: GLYCOPYRROLATE 0.2 MG/ML VIAL IV ONE (10:00)
[2019-02-09] MEDS ORDERED: DEXAMETHASONE INJ 10 MG/ML VIAL IV ONE (10:00)
[2019-02-09] MEDS ORDERED: SODIUM CHLORIDE 0.9% 50 ML VIAL INJ ONE (10:00)
[2019-02-09] MEDS ORDERED: ePHEDrine SULF 50 MG/ML IV ONE (10:00)
[2019-02-09] MEDS ORDERED: diphenhydrAMINE HCL 50 MG/ML VIAL IV ONE (10:00)
[2019-02-09] MEDS ORDERED: PROPOFOL 200 MG/20 ML VIAL IV ONE (10:00)
[2019-02-09] MEDS ORDERED: hydrALAZINE HCl 20 MG/ML VIAL ONE (10:21)
[2019-02-09] MEDS ORDERED: LACTATED RINGERS 1,000 ML IVS ONE (10:55)
--- NOTE | 2019-02-09 11:37 | RAD ---
EXAM DESCRIPTION: Knee,Right 2 or More Views CLINICAL HISTORY: 58 years Male, TKA TECHNIQUE: 2 views of the right knee were performed. COMPARISON: Radiographs of the right knee dated 10/29/2018. FINDINGS: The visualized bones appear well mineralized. No acute fracture or dislocation. Changes of total knee arthroplasty are noted. There is prepatellar soft tissue swelling and subcutaneous emphysema, consistent with recent surgery. IMPRESSION: Changes of right total knee arthroplasty with expected postsurgical changes in the surrounding soft tissues. Electronically signed by: Kimmie Guerrero MD 02/09/2019 11:34 AM CDT
--- NOTE | 2019-02-09 14:35 | CONS ---
SUPERVISING PHYSICIAN: Ashwin Desir MD DATE OF CONSULTATION: 02/09/19 REASON FOR CONSULTATION: Medical management. HISTORY OF PRESENT ILLNESS: This is a 58-year-old male patient who came in for an elective revision of right total knee arthroplasty. Apparently, he had the surgery initially in 2017, but continued to have some pain. After some outpatient conservative management, it was discussed that a revision would be done. Revision was done today without any intraoperative complications. He returned to the Medical/Surgical Floor in stable condition. PAST MEDICAL HISTORY: 1. Hypertension. 2. Osteoarthritis. 3. Dysphagia, which was followed by Dr. Dickerson in [place] in 2017. 4. Gastroesophageal reflux disease. PAST SURGICAL HISTORY: 1. Tonsillectomy. 2. Cholecystectomy. 3. Right total knee arthroplasty. MEDICATIONS: 1. Clonidine 0.2 mg p.o. daily. 2. Meloxicam 7.5 mg p.o. b.i.d. 3. Metoprolol 75 mg p.o. b.i.d. 4. Potassium gluconate 550 mg p.o. daily. 5. Ranitidine 150 mg p.o. b.i.d. 6. Micardis 40 mg p.o. daily. 7. Zanaflex 4 mg p.o. t.i.d. 8. Ultram 50 mg p.o. every 6 hours p.r.n. for pain. ALLERGIES: NO KNOWN DRUG ALLERGIES. FAMILY HISTORY: Father at 68 secondary to hypertension and myocardial infarction. Mother at age 61 due to pancreatic cancer. SOCIAL HISTORY: The patient is disabled. He quit smoking 15 years ago. He does not utilize alcohol or illicit drugs. REVIEW OF SYSTEMS: CONSTITUTIONAL: No fever or chills. No recent weight loss or weight gain. HEENT: No headaches, vision changes, ear pain, nasal congestion or throat pain. RESPIRATORY: No cough, hemoptysis or pleuritic chest pain. CARDIOVASCULAR: No chest pain, palpitations or peripheral edema. GASTROINTESTINAL: No nausea, vomiting, diarrhea, constipation or abdominal pain. GENITOURINARY: No dysuria, frequency or flank pain. MUSCULOSKELETAL: Right knee pain. No muscle cramping or other joint swelling or pain. ENDOCRINE: No polydipsia, polyuria or polyphagia. No heat or cold intolerance. NEUROLOGIC: No headaches, syncope, paresthesias or seizures. PHYSICAL EXAMINATION: VITAL SIGNS: Blood pressure 170/97. Heart rate 79. Respiratory rate 16. Temperature 98.1. Oxygen saturation 98%. GENERAL: Mr. Novak is a 58-year-old male patient in no active distress. NEUROLOGIC: The patient is alert and oriented. CHEST: Lungs are clear to auscultation bilaterally. CARDIOVASCULAR: Regular rate and rhythm. Normal S1, S2. ABDOMEN: Soft. Positive bowel sounds. No tenderness to palpation. EXTREMITIES: Lower extremities with no edema. Pulses 2+. Capillary refill is less than 2 seconds. The right knee is wrapped with an Ted and has cooling machine applied. LABORATORY: Labs from a few days ago show white count 8.2, hemoglobin 15.6, hematocrit 45.8, platelet count 232. Chemistry unremarkable. Drug screen negative. ASSESSMENT: 1. Right knee osteoarthritis status post right total knee arthroplasty history with a revision done today. 2. Hypertension. 3. History of dysphagia, stable. PLAN: We will order postoperative management orders of Dr. Clancy's. This will include anticoagulation as well as physical therapy. I will resume his home medications once they are verified in the computer as well. Currently, his pain is controlled with morphine [employer]. [facility][id number] [facility]
[2019-02-09] MEDS ORDERED: ceFAZolin SODIUM 2 GRAMS PREMI 50 ML IVPB ONE ×2 (15:11→19:06)
[2019-02-09] MEDS: ceFAZolin SODIUM 2 GRAMS PREMI 2 GM in PREMIX BAG 1 BAG IVPB SCH ×2 (15:16→23:50)
[2019-02-09] MEDS: CELECOXIB 100 MG CAP PO SCH (15:16)
[2019-02-09] MEDS ORDERED: VANCOMYCIN HCL INJ 1,000 MG VIAL IVPB ONE (17:51)
[2019-02-09] MEDS ORDERED: SODIUM CHLORIDE 0.9% 250ML 250 ML ONE (17:51)
[2019-02-09] MEDS: VANCOMYCIN HCL INJ 1,000 MG in SODIUM CHLORIDE 0.9% 250ML 250 ML IVPB SCH (17:57)
[2019-02-09] MEDS: ONDANSETRON INJ 4 MG/2 ML VIAL IV PRN (18:10)
[2019-02-09] MEDS ORDERED: NON-FORMULARY MEDICATION 1 EA MIS (Clonidine Hcl [Clonidine Hcl] 0.2 MG) PO PRN (18:43)
[2019-02-09] MEDS ORDERED: NON-FORMULARY MEDICATION 1 EA MIS (Telmisartan [Micardis] 40 MG) PO SCH (18:45)
[2019-02-09] MEDS ORDERED: METOPROLOL TARTRATE 25 MG TAB ONE (19:05)
[2019-02-09] MEDS ORDERED: METOPROLOL TARTRATE 50 MG TAB ONE (19:06)
[2019-02-09] MEDS ORDERED: ENOXAPARIN SODIUM 30 MG/0.3 ML SYG SUBCU ONE (19:06)
[2019-02-09] MEDS: LOSARTAN POTASSIUM 25 MG TAB PO SCH (20:35)
[2019-02-09] MEDS: DOCUSATE CALCIUM 240 MG CAP PO SCH (20:36)
[2019-02-09] MEDS ORDERED: METOPROLOL TARTRATE 25 MG TAB PO ONE (21:00)
[2019-02-09] MEDS ORDERED: METOPROLOL TARTRATE 75 MG PO SCH (21:00)
[2019-02-09] MEDS: ENOXAPARIN SODIUM 30 MG/0.3 ML SYG SUBCU SCH (23:49)
[2019-02-10] MEDS: ONDANSETRON INJ 4 MG/2 ML VIAL IV PRN ×2 (00:08→08:04)
[2019-02-10] MEDS ORDERED: cloNIDine HCL 0.1 MG TAB PO PRN (00:40)
[2019-02-10] MEDS ORDERED: hydrALAZINE HCl 20 MG/ML VIAL IV ONE (02:24)
[2019-02-10] MEDS: MAGNESIUM OXIDE 400 MG TAB PO SCH ×2 (02:36→08:42)
[2019-02-10] MEDS ORDERED: SODIUM CHLORIDE 0.9% 250ML 250 ML ONE ×2 (05:35→17:00)
[2019-02-10] MEDS ORDERED: VANCOMYCIN HCL INJ 1,000 MG VIAL IVPB ONE ×2 (05:36→17:00)
[2019-02-10] MEDS: VANCOMYCIN HCL INJ 1,000 MG in SODIUM CHLORIDE 0.9% 250ML 250 ML IVPB SCH ×2 (05:44→17:27)
[2019-02-10] MEDS ORDERED: ceFAZolin SODIUM 2 GRAMS PREMI 50 ML IVPB ONE ×3 (07:44→19:08)
[2019-02-10] MEDS: CELECOXIB 100 MG CAP PO SCH ×2 (07:58→17:26)
[2019-02-10] MEDS: ceFAZolin SODIUM 2 GRAMS PREMI 2 GM in PREMIX BAG 1 BAG IVPB SCH ×2 (08:04→15:48)
--- NOTE | 2019-02-10 08:18 | PN ---
DATE: 02/10/19 SUBJECTIVE: Ange is doing well and his pain is well controlled. OBJECTIVE: Afebrile. Vital signs stable. Dressing is clean, dry and intact. ASSESSMENT: Status post polyethylene exchange and patellar resurfacing. PLAN: He is going to be weightbearing as tolerated today and we will start him on CPM. [facility][id number] [facility]
[2019-02-10] MEDS ORDERED: METOPROLOL TARTRATE 25 MG TAB ONE (08:21)
--- NOTE | 2019-02-10 08:24 | PN ---
DATE: 02/09/19 POSTOPERATIVE CHECK SUBJECTIVE: He is doing well and has no pain. OBJECTIVE: Afebrile. Vital signs stable. Dressing is clean, dry and intact. ASSESSMENT: Status post partial knee revision. PLAN: The plan is to begin weightbearing as tolerated on postoperative day 1. [facility][id number] [facility]
[2019-02-10] MEDS: CLOTRIMAZOLE TOP SCH ×3 (08:42→20:41)
[2019-02-10] MEDS ORDERED: METOPROLOL SUCCINATE XL 50 MG TAB ONE (08:43)
[2019-02-10] MEDS: METOPROLOL TARTRATE 50 MG TAB PO SCH ×2 (08:56→20:41)
[2019-02-10] MEDS: LOSARTAN POTASSIUM 25 MG TAB PO SCH (09:54)
[2019-02-10] MEDS: ENOXAPARIN SODIUM 30 MG/0.3 ML SYG SUBCU SCH ×2 (11:51→22:35)
--- NOTE | 2019-02-10 13:22 | PN ---
G PHYSICIAN: Ashwin Desir MD DATE: 02/10/19 SUBJECTIVE: The patient states he is doing well. He rates his pain in his knee at about 3. It is controlled with pain medications at this time. No shortness of breath. He is tolerating physical therapy fair at this time. OBJECTIVE: VITAL SIGNS: Blood pressure 116/65. Heart rate 69. Respiratory rate 16. Temperature 97.5. Oxygen saturation 94%. GENERAL: Mr. Novak is a 58-year-old male patient in no active distress currently. NEUROLOGIC: Alert and oriented. LUNGS: Clear to auscultation bilaterally. CARDIOVASCULAR: Regular rate and rhythm. Normal S1, S2. ABDOMEN: Soft. Positive bowel sounds. EXTREMITIES: Right knee with Ted dressing which is dry and intact. Peripheral pulses 2+ Capillary refill is less than 2 seconds. LABORATORY: He did have hemoglobin checked this morning which was 13.5 and hematocrit 40.2. ASSESSMENT: 1. Right knee osteoarthritis status post right total knee arthroplasty revision, postoperative day #1. 2. Hypertension. 3. History of dysphagia. PLAN: Continue all medications and the addition of Lovenox has been ordered this morning. #[id number] [facility]
[2019-02-10] MEDS ORDERED: VANCOMYCIN HCL INJ 1,000 MG in SODIUM CHLORIDE 0.9% 250ML 250 ML IVPB SCH (14:00)
--- NOTE | 2019-02-10 14:53 | OP ---
DATE OF PROCEDURE: 02/09/19 PREOPERATIVE DIAGNOSIS: 1. Knee pain status post total knee arthroplasty. POSTOPERATIVE DIAGNOSIS: 1. Patellofemoral pain. PROCEDURE: 1. Polyethylene exchange and patellar resurfacing. SURGEON: Dc Clancy MD. SECURITY STRATEGIST: Alfred Jaimes CST, SA-C. ANESTHESIA: General anesthesia. COMPLICATIONS: None. FINDINGS: Patellofemoral arthritis. There was no evidence of purulence or gross overall infection. INDICATION: Ange has a history of pain in the knee although he has had no trauma. Infectious workup was negative. He has had difficulty with patella mobilization in going up and downstairs. We discussed findings and options which for him would include potential revision or simply undergoing patellar resurfacing. After discussing the risks, benefits and alternatives to options, the patient has given informed consent for patellar revision with potential full revision. PROCEDURE: The patient was brought to the Operating Room and placed in supine position. General anesthesia was induced and the patient's leg was sterilely prepped and draped. Following prepping and draping, an incision was made in line with his previous scar. Dissection was carried down and standard medial parapatellar approach was used. The knee was exposed and the polyethylene was removed to facilitate full exposure. The knee was thoroughly investigated and was manually probed. There did not appear to be any evidence of acute hardware failure and there was no evidence of loosening. There was evidence of patellar wear. As such, I elected to proceed with patellar resurfacing and polyethylene change. The patella was measured and approximately 9 mm was resected. There was good, bleeding bony bed that was achieved. Following that, a metal backed patellar component measuring 9 mm in width was applied. The wound was very thoroughly irrigated. Following irrigation, the arthrotomy was reapproximated. The skin was closed with a combination of running and interrupted subcuticular stitches. Sterile dressings were placed. The patient was awoken from anesthesia and taken to Recovery. POSTOPERATIVE PLAN: The patient will begin a routine postoperative course for physical therapy. He will be discharged when he meets discharge criteria. [facility][id number] [facility]
[2019-02-10] MEDS: DOCUSATE CALCIUM 240 MG CAP PO SCH (20:41)
[2019-02-11] MEDS: ceFAZolin SODIUM 2 GRAMS PREMI 2 GM in PREMIX BAG 1 BAG IVPB SCH ×2 (00:08→09:58)
[2019-02-11] MEDS ORDERED: SODIUM CHLORIDE 0.9% 250ML 250 ML ONE (05:22)
[2019-02-11] MEDS ORDERED: VANCOMYCIN HCL INJ 1,000 MG VIAL IVPB ONE (05:22)
[2019-02-11] MEDS: VANCOMYCIN HCL INJ 1,000 MG in SODIUM CHLORIDE 0.9% 250ML 250 ML IVPB SCH (05:25)
[2019-02-11] MEDS ORDERED: ceFAZolin SODIUM 2 GRAMS PREMI 50 ML IVPB ONE (08:02)
[2019-02-11] MEDS ORDERED: SODIUM CHLORIDE 0.9% (FLUSH) 10 ML SYG IV SCH (09:00)
[2019-02-11] MEDS: MAGNESIUM OXIDE 400 MG TAB PO SCH (09:58)
[2019-02-11] MEDS: CELECOXIB 100 MG CAP PO SCH (09:58)
[2019-02-11] MEDS: LOSARTAN POTASSIUM 25 MG TAB PO SCH (10:07)
[2019-02-11] MEDS: METOPROLOL TARTRATE 50 MG TAB PO SCH (10:21)
--- NOTE | 2019-02-11 11:21 | PN ---
DATE: 02/11/19 SUBJECTIVE: Ange is doing well and he is requesting to be discharged. OBJECTIVE: Afebrile. Vital signs stable. Wound is clean. There are no signs or symptoms of infection. ASSESSMENT: Status post revision of total knee. PLAN: We are going to discharge him today and we will see him back again in 2 weeks. He has been instructed to return immediately should any change in his condition occur. #[id number] [facility]
[2019-02-11 12:30] VITALS: BP 121/71; TEMP 97.8
--- NOTE | 2019-02-11 14:22 | DS ---
SUPERVISING PHYSICIAN: Len Banegas MD DISCHARGE DIAGNOSIS: 1. Right knee osteoarthritis status post right total knee arthroplasty revision, postoperative day #2. 2. Hypertension. 3. History of dysphagia. HISTORY OF PRESENT ILLNESS: This is a 58-year-old male patient who came in for an elective revision of right total knee arthroplasty. He had the surgery initially in 2017, but continued to have some pain. After some outpatient conservative management, it was discussed that a revision would be done. Revision was done on the day of admission and there were no intraoperative complications. He was admitted to the Medical/Surgical Floor in stable condition. HOSPITAL COURSE: His postoperative recovery improved. He went through physical therapy for strengthening and conditioning. His home medications were resumed. He was transitioned off his IV fluids and IV medications. His diet was advanced. At this point, he can be discharged home with followup at [facility]'s outpatient physical therapy department. LABORATORY: CBC on admission was unremarkable with a followup hemoglobin and hematocrit of 13.5 and 40.2. His metabolic panel was all within normal limits. All other labs and films have been reviewed via the EMR. DISCHARGE PLAN: The patient will be discharged home in stable condition. He is to resume his previous diet and increase his activity as per physical therapy. He will begin his physical therapy at [facility]'s outpatient physical therapy center as scheduled by the physical therapy department. He is to resume his previous home medications. In addition to his previous home medications, he is to have 9 additional days of Xarelto. I have given a prescription for tramadol for pain medication. He previously had a pain contract, but he said his pain doctor moved to [place]. It was recommended he call his pain medication doctor to make sure that he could get his tramadol filled. He is aware that if he gets the tramadol filled, it may void his pain contract unless he clears that with his pain management physician. He is to followup with Dr. Clancy within one to two weeks. He is to return to the hospital or call Dr. Dc Clancy's office or [facility] for any problems or complications. DISCHARGE MEDICATIONS: 1. Tramadol. 2. Metoprolol. 3. Mobic, although Mobic should not be started until after completion of the Xarelto. 4. Ranitidine. 5. Clonidine. 6. Zanaflex. 7. Potassium gluconate. 8. Micardis. 9. Lotrimin cream. 10. Xarelto. [facility][id number] [facility]
[2019-02-11 14:24] VITALS: O2SAT 96
[2019-02-12] MEDS ORDERED: BISACODYL SUPPOSITORY 10 MG PR ONE (21:00)
[2019-02-12] MEDS ORDERED: MAGNESIUM HYDROXIDE 30 ML UD PO ONE (21:00)
== END 2019-02-11 14:20 | disposition home or self-care (01) | DRG 468 ==
LOC: AMB 05:49 → MS 11:00
PROVIDERS: ADMIT Orthopaedic Surgery; ATTEND Orthopaedic Surgery
PROC: 0SPV0JZ Removal of Synthetic Substitute from Right Knee Joint, Tibial Surface, Open Approach (ICD-10-PCS; 2019-02-09)
PROC: 0SRV0JA Replacement of Right Knee Joint, Tibial Surface with Synthetic Substitute, Uncemented, Open Approach (ICD-10-PCS; 2019-02-09)
PROC: 0QQD0ZZ Repair Right Patella, Open Approach (ICD-10-PCS; principal; 2019-02-09 07:02)
DX: M17.11 Unilateral primary osteoarthritis, right knee (principal); I10 Essential (primary) hypertension; K21.9 Gastro-esophageal reflux disease without esophagitis; R13.10 Dysphagia, unspecified; Z96.651 Presence of right artificial knee joint; Z79.1 Long term (current) use of non-steroidal anti-inflammatories (NSAID); Z79.891 Long term (current) use of opiate analgesic; Z79.899 Other long term (current) drug therapy; Z87.891 Personal history of nicotine dependence

== ENCOUNTER → 2019-12-20 | Outpatient (CLI) | payer OTHER | DX: I10 Essential (primary) hypertension (principal) ==

== ENCOUNTER 2020-05-25 13:57 | Emergency (ER) | payer OTHER ==
[2020-05-25] MEDS ORDERED: ALBUTEROL SULFATE 2.5 MG/3 ML VIAL NEB ONE (15:17)
[2020-05-25] MEDS ORDERED: CALCIUM GLUCONATE INJ 1 GM/10 ML VIAL IV ONE (15:18)
[2020-05-25] MEDS ORDERED: DEXTROSE 50% 25 GM/50 ML SYG IV ONE (15:18)
[2020-05-25] MEDS ORDERED: SODIUM CHLORIDE 0.9% (FLUSH) 10 ML SYG IV PRN (15:18)
[2020-05-25] MEDS ORDERED: INSULIN, REG.(HUMAN) 100 U/ML VIAL IV ONE (15:18)
[2020-05-25] MEDS ORDERED: SOD POLYSTYRENE SULFONATE 15 GM/60 ML BTTL PO ONE (15:18)
--- NOTE | 2020-05-25 15:44 | ED.PDOC ---
History of Present Illness - General Chief Complaint: General Stated Complaint: Sent over by PCM for hyperkalemia Time Seen by Provider: 05/25/20 14:11 Source: patient, RN notes reviewed, Vital Signs reviewed, old records - Lab records from 12/2019. Exam Limitations: no limitations - History of Present Illness Initial Comments: Patient is a 59-year-old white male who presents from his doctor's office with concerns for elevated potassium. At the doctor's office, he was there for some general lab work and not feeling well and was noted to have an elevated potassium 6.5. Dr. Goode was concerned that this was a false elevation due to hemolysis and sent him over here for definitive testing. Patient is on daily potassium and is supposed to take 2 pills but only takes 1 of them. Patient states that he is just been feeling malaise and fatigue for the last few days. Nothing seems to make it better or worse. It is mild in intensity. Patient denies any other symptoms. Timing/Duration: 1 week Severity: mild Improving Factors: nothing Worsening Factors: nothing Associated Symptoms: denies symptoms Allergies/Adverse Reactions: Allergies NO KNOWN ALLERGY Allergy (Verified 05/25/20 14:38) Home Medications: Ambulatory Orders Meloxicam [Mobic] 7.5 mg PO BID 06/08/17 Metoprolol Tartrate 75 mg PO BID 06/08/17 Clonidine HCl [Clonidine Hydrochloride] 0.2 mg PO DAILY PRN 08/11/18 Ranitidine HCl 150 mg PO BID 08/11/18 tiZANidine [Zanaflex] 4 mg PO TID 08/11/18 Potassium Gluconate 550 mg PO DAILY 12/27/18 Telmisartan [Micardis] 40 mg PO DAILY 02/07/19 Clotrimazole Cream [Lotrimin Cream] 1 applic TOP TID appli 02/11/19 Rivaroxaban [Xarelto] 10 mg PO DAILY #9 tab 02/11/19 Tramadol HCl 50 - 100 mg PO Q6H PRN #50 tab 02/11/19 Review of Systems - Review of Systems Constitutional: States: see HPI, malaise, weakness. Denies: chills, fever EENTM: States: no symptoms reported. Denies: eye pain, blurred vision, double vision Respiratory: States: no symptoms reported. Denies: cough, short of breath, stridor, wheezing Cardiology: States: no symptoms reported. Denies: chest pain, palpitations, syncope Gastrointestinal/Abdominal: States: no symptoms reported. Denies: abdominal pain, diarrhea, nausea, vomiting Genitourinary: States: no symptoms reported. Denies: dysuria, frequency Musculoskeletal: States: no symptoms reported. Denies: back pain, neck pain Skin: States: no symptoms reported. Denies: change in color, rash Neurological: States: no symptoms reported, see HPI, weakness. Denies: headache, numbness, paresthesia Endocrine: States: no symptoms reported. Denies: intolerance to cold, intolerance to heat, increased hunger, increased thirst, increased urine Hematologic/Lymphatic: States: no symptoms reported All other Systems: No Change from Baseline Past Medical History (General) - Patient Medical History Hx Seizures: No Hx Stroke: No Hx Asthma: No Hx of COPD: Yes Hx Cardiac Disorders: No Hx Congestive Heart Failure: No Hx Pacemaker: No Hx Hypertension: Yes Hx Diabetes: No Hx Gastroesophageal Reflux: Yes Hx Cancer: No Hx MRSA: No Surgical History: cholecystectomy, tonsillectomy - Vaccination History Hx Tetanus, Diphtheria Vaccination: No Hx Influenza Vaccination: Yes Hx Pneumococcal Vaccination: No - Social History Hx Tobacco Use: No Hx Alcohol Use: No Hx Substance Use: No Hx Substance Use Treatment: No Hx Depression: No Hx Physical Abuse: No Hx Emotional Abuse: No - Female History Patient is a Female of Child Bearing Age (10 -59 yrs old): No Patient : No Family Medical History - Family History Mother Family History: No Known Living Status: Cause of : pancreatic CA Hx Cardiac Disease: Yes - Hx DVT's Physical Exam - Physical Exam General Appearance: Alert, Comfortable, Well Developed, Well Groomed, Well Hydrated, Well Nourished Eye Exam: bilateral normal Ears, Nose, Throat: hearing grossly normal, normal ENT inspection, normal pharynx Neck: non-tender, full range of motion, supple, normal inspection Respiratory: chest non-tender, lungs clear, normal breath sounds, no respiratory distress, no accessory muscle use, respiratory distress Cardiovascular/Chest: normal peripheral pulses, no edema, no gallop, no JVD, no murmur, bradycardia Peripheral Pulses: radial,right: 2+, radial,left: 2+ Gastrointestinal/Abdominal: normal bowel sounds, non tender, soft, no organomegaly, no pulsatile mass Back Exam: normal inspection, no CVA tenderness, no vertebral tenderness Extremity: normal range of motion, non-tender, normal inspection Neurologic: junior net developer II-XII nml as tested, no motor/sensory deficits, alert, normal m ood/affect, oriented x 3 Skin Exam: normal color, warm/dry Lymphatic: no adenopathy Progress - Progress Progress: Differential diagnosis: Hyperkalemia secondary to medication, hyperkalemia secondary to renal failure, falsely elevated potassium secondary to sample hemolysis, hypermagnesemia among others 05/25/20 15:46 Discussed with patient and his PCP the new findings of elevated BUN and creatinine. As well as the significantly elevated potassium. We are all in agreement patient will need transfer to a higher level of care for renal evaluation. Plan on transfer to [facility]. Patient has been accepted by Dr. Norman to the emergency department. Will implement hyperkalemia protocol. Yves Stevens M.D. #[id number] - Results/Orders Results/Orders: EKG performed on 25 May 2020 at 1412 hrs.: Sinus bradycardia 56 bpm, normal axis deviation no ST elevation or changes. There is some mildly peaked T waves in V3 and V4, abnormal EKG. No comparison EKG available at this time. 05/25/20 14:15 EKG .ONCE 05/25/20 15:18 Insulin, Reg.(Human) [HumuLIN R] DOSE units IV ONCE ONE Sodium Chloride 0.9% (Flush) [Saline Flush Syringe] 3 ml IV PRN PRN Laboratory Results - last 24 hr 05/25/20 05/25/20 14:24 14:24 WBC 7.2 RBC 4.67 L Hgb 14.8 Hct 42.8 MCV 91.8 MCH 31.6 H MCHC 34.5 RDW 13.8 Plt Count 275 MPV 8.2 Absolute Neuts (auto) 4.90 Absolute Lymphs (auto) 1.40 Absolute Monos (auto) 0.60 Absolute Eos (auto) 0.10 Absolute Basos (auto) 0.10 Neutrophils % 68.6 Lymphocytes % 19.7 L Monocytes % 8.7 Eosinophils % 1.9 Basophils % 1.1 Sodium 129 L Potassium 8.0 H* Chloride 103 Carbon Dioxide 20 L Anion Gap 14.0 BUN 51 H Creatinine 3.28 H BUN/Creatinine Ratio 15.5 Random Glucose 92 Serum Osmolality 272.3 L Calcium 8.7 Total Bilirubin 1.0 AST 12 ALT 9 L Alkaline Phosphatase 102 Serum Total Protein 7.2 Albumin 4.0 Globulin 3.2 Albumin/Globulin Ratio 1.3 Lipase 59 H Vital Signs 05/25/20 05/25/20 05/25/20 14:00 14:34 15:30 Temperature 97.3 F L Pulse Rate 58 L Pulse Rate [ 56 L 56 L Pulse ox] Respiratory 16 16 18 Rate Blood Pressure 112/70 [L arm] O2 Sat by Pulse 97 98 Oximetry Departure - Departure Clinical Impression: Hyperkalemia Renal failure Qualifiers: Renal failure chronicity: acute Acute renal failure type: unspecified Qualified Code(s): N17.9 - Acute kidney failure, unspecified Time of Disposition: 15:53 Disposition: Transfer to Hospital Condition: Fair Departure Forms: ED Discharge - Pt. Copy, Patient Portal Self Enrollment Referrals: Mary Jane Goode MD [Primary Care Provider] - 1-2 Weeks Home Medications: Ambulatory Orders Meloxicam [Mobic] 7.5 mg PO BID 06/08/17 Metoprolol Tartrate 75 mg PO BID 06/08/17 Clonidine HCl [Clonidine Hydrochloride] 0.2 mg PO DAILY PRN 08/11/18 Ranitidine HCl 150 mg PO BID 08/11/18 tiZANidine [Zanaflex] 4 mg PO TID 08/11/18 Potassium Gluconate 550 mg PO DAILY 12/27/18 Telmisartan [Micardis] 40 mg PO DAILY 02/07/19 Clotrimazole Cream [Lotrimin Cream] 1 applic TOP TID appli 02/11/19 Rivaroxaban [Xarelto] 10 mg PO DAILY #9 tab 02/11/19 Tramadol HCl 50 - 100 mg PO Q6H PRN #50 tab 02/11/19
[2020-05-25 15:53] VITALS: BP 117/76; TEMP 97.6; O2SAT 97
== END 2020-05-25 16:00 | disposition short-term general hospital (02) ==
LOC: ER 13:57
DX: N17.9 Acute kidney failure, unspecified (principal); E87.5 Hyperkalemia; R53.83 Other fatigue; J44.9 Chronic obstructive pulmonary disease, unspecified; I10 Essential (primary) hypertension; K21.9 Gastro-esophageal reflux disease without esophagitis; Z90.49 Acquired absence of other specified parts of digestive tract; Z79.899 Other long term (current) drug therapy; Z79.01 Long term (current) use of anticoagulants
CPT/HCPCS: 36415; 80053; 83690; 85025; 93005; 94640; J7611; J7799

== ENCOUNTER → 2020-05-25 | Outpatient (CLI) | payer OTHER ==
--- NOTE | 2020-05-25 14:57 | RAD ---
EXAM DESCRIPTION: Abdomen 1 View CLINICAL HISTORY: EPIGASTRIC PAIN COMPARISON: None. IMPRESSION: Single AP standing view of the abdomen shows a nonspecific, nonobstructive bowel gas pattern. Air-filled loops of small bowel in the left upper quadrant are seen with normal volume of air and stool in the colon. Surgical clips from cholecystectomy are seen. No free intraperitoneal air is seen. Visualized lung bases are unremarkable. The pelvis is incompletely included in the [id number]. Electronically signed by: Sher Dailey MD 05/25/2020 2:56 PM CDT
== END ==
LOC: YCFC.O 09:59
PROVIDERS: ATTEND Family Medicine
DX: Z03.818 Encounter for observation for suspected exposure to other biological agents ruled out (principal); R10.13 Epigastric pain; R50.9 Fever, unspecified; Z98.890 Other specified postprocedural states; Z90.49 Acquired absence of other specified parts of digestive tract

== ENCOUNTER → 2020-10-02 | Outpatient (CLI) | payer OTHER | LOC: LAB.O 16:25 | PROVIDERS: ATTEND Internal Medicine | DX: N18.30 Chronic kidney disease, stage 3 unspecified (principal); E83.42 Hypomagnesemia; E83.30 Disorder of phosphorus metabolism, unspecified ==